=== PATIENT | male | born 1945 | race Caucasian/White ===

== ENCOUNTER 2017-12-16 00:24 | Inpatient (IN) | payer OTHER ==
[~2017-12-16] VITALS: Ht 175.3 cm; Wt 139.7 kg
[~2017-12-16 00:24] MED LIST: AMIO200T33 PO; ASPI81CH43 PO; ATO40T PO; GLIP-115 PO; HYDR-531 PO; INSUINJ2 SC; MET50T PO; MULT-228 PO; WARPRX PO
[2017-12-16 01:18] LABS: Basophils # (auto) 0 uL; Basophils % (auto) 0.5 % (0.0-2.0); Eosinophils # (auto) 0.1 uL; Eosinophils % (auto) 1.2 % (0.0-7.0); Hematocrit 49.1 % (41.0-53.0); Hemoglobin 16.6 g/dL (13.5-17.5); Lymphocytes % (auto) 21.4 % (10.0-50.0); Mean Corpuscular Hgb Conc. 33.9 g/dL (32.0-36.0); Mean Corpuscular Volume 91.5 fL (80.0-100.0); Monocytes # (auto) 1.1 uL; Monocytes % (auto) 11.4 % (0.0-12.0); Neutrophils # (auto) 6.1 uL; Neutrophils % (auto) 65.5 % (37.0-80.0); Platelet Count (auto) 269 10^3/uL (140-450); Red Blood Cells 5.37 10^6/uL (4.5-5.90); Red Cell Distribution Width 14.2 % (11.8-14.3); White Blood Cell 9.3 10^3/uL (4.4-10.8)
[2017-12-16 01:40] LABS: Chloride 104 mmol/L (98-107); Potassium 4.6 mmol/L (3.5-5.1); Sodium 136 mmol/L (136-145)
[2017-12-16 01:45] LABS: Alanine Aminotransferase 38 U/L (16-61); Albumin 3.5 g/dL (3.4-5.0); Anion Gap 10 (5-15); Aspartate Aminotransferase 29 U/L (15-37); BUN/Creatinine Ratio 15.8; Blood Urea Nitrogen 15 mg/dL (7-18); Calcium 8.9 mg/dL (8.5-10.1); Carbon Dioxide 22 mmol/L (21-32); GFR African American 101 mL/min; GFR Non-African American 83 mL/min; Glucose 208 mg/dL (74-106)
[2017-12-16 01:50] LABS: Alkaline Phosphatase 111 U/L (45-117); Bilirubin, Total 0.3 mg/dL (0.2-1.0); Total Protein 7.1 g/dL (6.4-8.2)
[2017-12-16] MEDS ORDERED: METOPROLOL TARTRATE 25 MG TAB PO ONE (03:00)
[2017-12-16] MEDS ORDERED: DIGOXIN (250MCG/ML) 2 ML AMPULE IV ONE (03:00)
[2017-12-16 04:00] LABS: INR 2.14 (0.9-1.15); Partial Thromboplastin Time 39.9 sec (22.64-33.71); Prothrombin Time 23.5 sec (9.37-12.3)
[2017-12-16] MEDS ORDERED: FUROSEMIDE 20 MG/2 ML VIAL IV ONE (06:45)
[2017-12-16] MEDS ORDERED: ENALAPRIL MALEATE 2.5 MG TAB PO ONE (06:45)
[2017-12-16] MEDS ORDERED: DEXTROSE (50%) 50ML SYRG IV PRN (06:45)
[2017-12-16] MEDS ORDERED: ACETAMINOPHEN 325 MG TAB PO PRN (06:45)
[2017-12-16] MEDS ORDERED: TEMAZEPAM 15 MG CAP PO PRN (06:45)
[2017-12-16] MEDS ORDERED: HYDROcodone-ACET 5/325MG TAB PO PRN (06:45)
[2017-12-16] MEDS ORDERED: MORPHINE SULFATE 4 MG/ML SYR/VIAL IV PRN (06:45)
[2017-12-16] MEDS ORDERED: NITROGLYCERIN 0.4 MG SL TAB SL PRN (06:45)
[2017-12-16] MEDS ORDERED: ONDANSETRON HCL 4 MG/2 ML VIAL IV PRN (06:45)
[2017-12-16] MEDS ORDERED: OPTISON 3ml Vial for INJ IV ONE (09:19)
[2017-12-16] MEDS ORDERED: AMIODARONE HCL 200 MG TAB PO SCH (10:00)
[2017-12-16] MEDS ORDERED: FAMOTIDINE 20 MG TAB PO SCH (10:00)
[2017-12-16] MEDS ORDERED: ASPirin 81 mg TAB PO SCH (10:00)
[2017-12-16] MEDS ORDERED: METOPROLOL TARTRATE 50 MG TAB PO SCH (10:00)
[2017-12-16 10:19] VITALS: BP 137/79
[2017-12-16] MEDS: InsuLIN REG 1unit/0.01ml Soln (100units/ml) SC SCH ×2 (10:55→16:56)
[2017-12-16] MEDS: ACCU-CHEK COMFORT CURVE STRIP VI SCH ×2 (10:55→16:57)
[2017-12-16] MEDS ORDERED: LEVO25TA6 PO (10:59)
[2017-12-16 11:58] VITALS: BP 145/79
[2017-12-16] MEDS ORDERED: AMI200T PO (12:33)
[2017-12-16] MEDS ORDERED: WARFARIN SODIUM 2 MG TAB PO ONE (17:00)
[2017-12-16 17:30] VITALS: BP 136/78
[2017-12-16] MEDS ORDERED: ATORVASTATIN 20 MG TAB PO SCH (22:00)
== END 2017-12-16 20:13 | disposition home or self-care (01) | DRG 309 ==
LOC: EDBD 00:24 → ER 00:32 → TELE 00:33 → TELE-WESTW 08:05
PROVIDERS: ADMIT Nurse Practitioner; ATTEND Internal Medicine
DX: I48.0 Paroxysmal atrial fibrillation (principal); D68.9 Coagulation defect, unspecified; E66.01 Morbid (severe) obesity due to excess calories; I11.0 Hypertensive heart disease with heart failure; Z68.42 Body mass index [BMI] 45.0-49.9, adult; I50.9 Heart failure, unspecified; E11.9 Type 2 diabetes mellitus without complications; F12.90 Cannabis use, unspecified, uncomplicated; F17.210 Nicotine dependence, cigarettes, uncomplicated; E78.5 Hyperlipidemia, unspecified; E03.9 Hypothyroidism, unspecified; Z88.8 Allergy status to other drugs, medicaments and biological substances; Z88.0 Allergy status to penicillin; Z79.899 Other long term (current) drug therapy; Z79.01 Long term (current) use of anticoagulants; Z79.82 Long term (current) use of aspirin; Z79.4 Long term (current) use of insulin
CPT/HCPCS: 36415; 71045; 80053; 82962; 83735; 84484; 85025; 85610; 85730; 93005; 93306; 96374; J1815; Q9956

== ENCOUNTER 2018-07-11 20:04 | Emergency (ER) | payer OTHER ==
[~2018-07-11] VITALS: Ht 175.3 cm; Wt 137.0 kg
[~2018-07-11 20:04] MED LIST changes: +AMI200T PO; -AMIO200T33 PO; -ASPI81CH43 PO; +LEVO25TA6 PO
[2018-07-11 21:25] LABS: Basophils # (auto) 0 uL; Basophils % (auto) 0.2 % (0.0-2.0); Eosinophils # (auto) 0 uL; Eosinophils % (auto) 0.1 % (0.0-7.0); Hemoglobin 14.7 g/dL (13.5-17.5); Lymphocytes # (auto) 0.5 uL; Lymphocytes % (auto) 4.5 % (10.0-50.0); Mean Corpuscular Hemoglobin 31.6 pg (28.0-32.0); Mean Corpuscular Hgb Conc. 34.2 g/dL (32.0-36.0); Mean Corpuscular Volume 92.5 fL (80.0-100.0); Monocytes # (auto) 0.8 uL; Monocytes % (auto) 6.7 % (0.0-12.0); Neutrophils # (auto) 10.1 uL; Neutrophils % (auto) 88.5 % (37.0-80.0); Platelet Count (auto) 219 10^3/uL (140-450); Red Blood Cells 4.65 10^6/uL (4.5-5.90); Red Cell Distribution Width 14.8 % (11.8-14.3); White Blood Cell 11.4 10^3/uL (4.4-10.8)
[2018-07-11 21:42] LABS: INR 2.74 (0.9-1.15); Partial Thromboplastin Time 39.9 sec (23.78-33.04); Prothrombin Time 27.7 sec (9.27-12.13)
[2018-07-11 21:51] LABS: Alanine Aminotransferase 56 U/L (16-61); Albumin 3.4 g/dL (3.4-5.0); Alkaline Phosphatase 95 U/L (45-117); Anion Gap 7 (5-15); Aspartate Aminotransferase 40 U/L (15-37); Bilirubin, Total 0.7 mg/dL (0.2-1.0); Blood Urea Nitrogen 15 mg/dL (7-18); Calcium 8.2 mg/dL (8.5-10.1); Carbon Dioxide 24 mmol/L (21-32); Chloride 105 mmol/L (98-107); GFR African American 80 mL/min; GFR Non-African American 66 mL/min; Glucose 248 mg/dL (74-106); Magnesium 2.3 mg/dL (1.6-2.6); Potassium 4.5 mmol/L (3.5-5.1); Sodium 136 mmol/L (136-145); Total Protein 6.9 g/dL (6.4-8.2)
[2018-07-11] MEDS ORDERED: MORPHINE SULF INJ 2 MG/ML SYRINGE 1ML IV ONE (23:15)
[2018-07-11] MEDS ORDERED: ONDANSETRON HCL 4 MG/2 ML VIAL IV ONE (23:15)
[2018-07-12] MEDS ORDERED: IOHEXOL 350 MG/ML 100ML IJ ONE (01:20)
[2018-07-12] MEDS ORDERED: HYDROmorphone HCL 2 MG/ML VL ONE (01:52)
[2018-07-12] MEDS ORDERED: HYDROmorphone HCL 2 MG/ML VL IV ONE (02:00)
[2018-07-12 02:36] VITALS: BP 130/58
== END 2018-07-12 02:31 | disposition short-term general hospital (02) ==
LOC: EDBD 20:04 → ER 20:15
DX: S22.059A Unspecified fracture of T5-T6 vertebra, initial encounter for closed fracture (principal); S22.069A Unspecified fracture of T7-T8 vertebra, initial encounter for closed fracture; S22.41XA Multiple fractures of ribs, right side, initial encounter for closed fracture; I48.91 Unspecified atrial fibrillation; E11.9 Type 2 diabetes mellitus without complications; E78.5 Hyperlipidemia, unspecified; I10 Essential (primary) hypertension; F17.210 Nicotine dependence, cigarettes, uncomplicated; Z88.0 Allergy status to penicillin; Z88.8 Allergy status to other drugs, medicaments and biological substances; Z79.4 Long term (current) use of insulin; Z79.899 Other long term (current) drug therapy; Z79.01 Long term (current) use of anticoagulants; W18.39XA Other fall on same level, initial encounter; Y93.89 Activity, other specified; Y99.8 Other external cause status; Y92.812 Truck as the place of occurrence of the external cause
CPT/HCPCS: 36415; 70450; 71275; 72128; 80053; 83735; 83880; 84484; 85025; 85610; 85730; 93005; 94761; 96374; 96375; 99285; J1170; J2270; J2405; Q9967

== ENCOUNTER 2018-10-15 14:54 | Inpatient (IN) | payer OTHER ==
[~2018-10-15] VITALS: Ht 175.3 cm; Wt 119.2 kg
[2018-10-15 16:01] LABS: Basophils # (auto) 0 uL; Basophils % (auto) 0.3 % (0.0-2.0); Eosinophils # (auto) 0.2 uL; Hematocrit 29.6 % (41.0-53.0); Hemoglobin 9.6 g/dL (13.5-17.5); Lymphocytes # (auto) 1.6 uL; Lymphocytes % (auto) 19.2 % (10.0-50.0); Mean Corpuscular Hemoglobin 27.6 pg (28.0-32.0); Mean Corpuscular Hgb Conc. 32.5 g/dL (32.0-36.0); Monocytes # (auto) 1.1 uL; Monocytes % (auto) 12.7 % (0.0-12.0); Neutrophils # (auto) 5.5 uL; Neutrophils % (auto) 65.8 % (37.0-80.0); Platelet Count (auto) 376 10^3/uL (140-450); Red Blood Cells 3.49 10^6/uL (4.5-5.90); Red Cell Distribution Width 16.5 % (11.8-14.3); White Blood Cell 8.4 10^3/uL (4.4-10.8)
[2018-10-15 16:19] LABS: Albumin 2.2 g/dL (3.4-5.0); BUN/Creatinine Ratio 10.1; Calcium 8.3 mg/dL (8.5-10.1)
[2018-10-15 16:24] LABS: Bilirubin, Total 0.3 mg/dL (0.2-1.0); Total Protein 6.1 g/dL (6.4-8.2)
[2018-10-15] MEDS ORDERED: SODIUM CHLORIDE 0.9% 1,000 ML IV ONE (17:28)
[2018-10-15] MEDS ORDERED: PROMETHAZINE HCL 25 MG/ML 1ML IV PRN (17:30)
[2018-10-15] MEDS ORDERED: KETOROLAC TROMETH 30 MG/ML 1ML VIAL IV ONE (17:30)
[2018-10-15] MEDS ORDERED: CLINDAMYCIN 900MG IV 50 ML IV ONE (17:45)
[2018-10-15] MEDS ORDERED: POTASSIUM EFFERVESENT TAB 25 MEQ PO ONE (17:45)
[2018-10-15 18:06] LABS: Magnesium 1.9 mg/dL (1.6-2.6)
[2018-10-15] MEDS ORDERED: TEMAZEPAM 15 MG CAP PO PRN (22:30)
[2018-10-15] MEDS ORDERED: ONDANSETRON HCL 4 MG/2 ML VIAL IV PRN (22:30)
[2018-10-15] MEDS ORDERED: DEXTROSE (50%) 50ML SYRG IV PRN (22:30)
[2018-10-15] MEDS ORDERED: HYDROcodone-ACET 5/325MG TAB PO PRN (22:30)
[2018-10-15] MEDS ORDERED: ACETAMINOPHEN 325 MG TAB PO PRN (22:30)
[2018-10-15] MEDS ORDERED: DOCUSATE SOD 100 MG CAP PO PRN (22:30)
[2018-10-15 22:57] LABS: INR 3.32 (0.9-1.15); Partial Thromboplastin Time 54.6 sec (23.78-33.04); Prothrombin Time 33.2 sec (9.27-12.13)
[2018-10-15 23:48] VITALS: BP 121/64
[2018-10-16 01:31] VITALS: BP 121/64
[2018-10-16] MEDS ORDERED: AMIO200T33 PO (02:54)
[2018-10-16] MEDS ORDERED: PANT40TA2 PO (02:54)
[2018-10-16] MEDS ORDERED: IRBE300T46 PO (02:54)
[2018-10-16] MEDS ORDERED: METO25TA5 PO (02:54)
[2018-10-16 04:00] VITALS: BP 115/59
[2018-10-16] MEDS: CLINDAMYCIN 600MG IV 50 ML IV SCH ×3 (05:49→22:10)
[2018-10-16] MEDS: InsuLIN REG 1unit/0.01ml Soln (100units/ml) SC SCH ×4 (06:00→18:00)
[2018-10-16] MEDS: ACCU-CHEK COMFORT CURVE STRIP VI SCH ×4 (06:18→18:20)
[2018-10-16 06:50] LABS: Albumin 1.9 g/dL (3.4-5.0); Basophils # (auto) 0 uL; Basophils % (auto) 0.7 % (0.0-2.0); Calcium 8.2 mg/dL (8.5-10.1); Eosinophils # (auto) 0.3 uL; Eosinophils % (auto) 4.7 % (0.0-7.0); Hemoglobin 9.6 g/dL (13.5-17.5); Lymphocytes # (auto) 1.5 uL; Lymphocytes % (auto) 24.8 % (10.0-50.0); Monocytes # (auto) 0.8 uL; Monocytes % (auto) 13.8 % (0.0-12.0); Neutrophils # (auto) 3.4 uL; Nucleated Red Blood Cells % 0.1 %; Platelet Count (auto) 360 10^3/uL (140-450); Potassium 3.1 mmol/L (3.5-5.1); Red Blood Cells 3.42 10^6/uL (4.5-5.90); Red Cell Distribution Width 16.4 % (11.8-14.3); White Blood Cell 6.1 10^3/uL (4.4-10.8)
[2018-10-16] MEDS: LEVOTHYROXINE SODIUM 25 MCG TAB PO SCH (06:51)
[2018-10-16 06:53] LABS: BUN/Creatinine Ratio 10.2; Bilirubin, Total 0.2 mg/dL (0.2-1.0); Total Protein 5.4 g/dL (6.4-8.2)
[2018-10-16 07:55] LABS: INR 3.34 (0.9-1.15); Partial Thromboplastin Time 51.3 sec (23.78-33.04); Prothrombin Time 33.4 sec (9.27-12.13)
[2018-10-16 08:19] VITALS: BP 122/65
[2018-10-16] MEDS: AMIODARONE HCL 200 MG TAB PO SCH ×2 (11:29→22:10)
[2018-10-16] MEDS: FAMOTIDINE 20 MG TAB PO SCH ×2 (11:29→22:11)
[2018-10-16] MEDS: METOPROLOL TARTRATE 50 MG TAB PO SCH ×2 (11:29→22:11)
[2018-10-16] MEDS ORDERED: FUROSEMIDE 20 MG/2 ML VIAL IV ONE (12:00)
[2018-10-16] MEDS ORDERED: POTASSIUM CHL 20 Meq TABLET PO ONE (12:00)
[2018-10-16 16:11] VITALS: BP 131/66
[2018-10-16 22:00] VITALS: BP 110/51
[2018-10-16] MEDS ORDERED: ATORVASTATIN 20 MG TAB PO SCH (22:00)
[2018-10-16 22:43] LABS: Urine Amorphous Crystal FEW /hpf (None Seen); Urine Bacteria FEW /hpf (None Seen); Urine Blood 2+ /uL (Negative); Urine Hyaline Cast FEW /lpf (0 - 2); Urine Mucus FEW (None Seen); Urine Specific Gravity 1.008 (1.001-1.035); Urine WBC 60 /hpf (0 - 3)
[2018-10-17 05:00] VITALS: BP 117/63
[2018-10-17] MEDS: ACCU-CHEK COMFORT CURVE STRIP VI SCH ×3 (05:39→13:08)
[2018-10-17] MEDS: CLINDAMYCIN 600MG IV 50 ML IV SCH (05:39)
[2018-10-17] MEDS: InsuLIN REG 1unit/0.01ml Soln (100units/ml) SC SCH ×3 (05:40→12:00)
[2018-10-17 06:01] LABS: INR 3.99 (0.9-1.15); Partial Thromboplastin Time 58.4 sec (23.78-33.04); Prothrombin Time 39.5 sec (9.27-12.13)
[2018-10-17 06:06] LABS: Albumin 1.9 g/dL (3.4-5.0); Calcium 8.1 mg/dL (8.5-10.1); Potassium 3.8 mmol/L (3.5-5.1)
[2018-10-17 06:08] LABS: BUN/Creatinine Ratio 9.2
[2018-10-17 06:09] LABS: Bilirubin, Total 0.3 mg/dL (0.2-1.0); Total Protein 5.5 g/dL (6.4-8.2)
[2018-10-17] MEDS: LEVOTHYROXINE SODIUM 25 MCG TAB PO SCH (06:31)
[2018-10-17 09:00] VITALS: BP 119/52
[2018-10-17] MEDS: METOPROLOL TARTRATE 50 MG TAB PO SCH (10:00)
[2018-10-17] MEDS: AMIODARONE HCL 200 MG TAB PO SCH (10:12)
[2018-10-17] MEDS: FAMOTIDINE 20 MG TAB PO SCH (10:12)
[2018-10-17 10:34] VITALS: BP 119/52
[2018-10-17] MEDS ORDERED: MEPERIDINE HCL (50 MG/ML) 1 ML VIAL ONE (10:56)
[2018-10-17] MEDS ORDERED: MIDAZOLAM HCL 1MG/1ML-2 ML VIAL ONE (10:56)
[2018-10-17] MEDS ORDERED: fentaNYL CITRATE 100 MCG/2 ML VL ONE (10:56)
[2018-10-17] MEDS ORDERED: PROPOFOL 10 MG/ML 20 ML IV ONE (11:01)
[2018-10-17] MEDS ORDERED: DEXAMETHASONE SOD PHOS 10MG/1ML VIAL INJ ONE (11:01)
[2018-10-17] MEDS ORDERED: diphenhdrAMINE HCL 50 MG/1 ML VL ONE (11:01)
== END 2018-10-17 13:45 | disposition home health service (06) | DRG 919 ==
LOC: EDBD 14:54 → ER 15:07 → WEST WING 22:34
PROVIDERS: ADMIT Nurse Practitioner; ATTEND Hospitalist
DX: T85.628A Displacement of other specified internal prosthetic devices, implants and grafts, initial encounter (principal); L89.94 Pressure ulcer of unspecified site, stage 4; L89.154 Pressure ulcer of sacral region, stage 4; E43 Unspecified severe protein-calorie malnutrition; T79.7XXA Traumatic subcutaneous emphysema, initial encounter; E66.01 Morbid (severe) obesity due to excess calories; I48.91 Unspecified atrial fibrillation; I70.8 Atherosclerosis of other arteries; E11.21 Type 2 diabetes mellitus with diabetic nephropathy; E78.5 Hyperlipidemia, unspecified; E87.5 Hyperkalemia; E87.6 Hypokalemia; F17.210 Nicotine dependence, cigarettes, uncomplicated; I10 Essential (primary) hypertension; K40.90 Unilateral inguinal hernia, without obstruction or gangrene, not specified as recurrent; K76.89 Other specified diseases of liver; N28.1 Cyst of kidney, acquired; W19.XXXA Unspecified fall, initial encounter; Y92.009 Unspecified place in unspecified non-institutional (private) residence as the place of occurrence of the external cause; Z79.899 Other long term (current) drug therapy; Y93.89 Activity, other specified; Y99.8 Other external cause status; Z68.38 Body mass index [BMI] 38.0-38.9, adult
CPT/HCPCS: 36415; 71045; 74176; 80053; 81001; 82962; 83690; 83735; 84443; 85025; 85610; 85730; 87077; 87081; 87186; 87205; 93005; 96361; 96365; 96375; A6257; G0378; J1100; J1885; J2250; J2704; J3490

== ENCOUNTER 2019-02-19 03:50 | Emergency (ER) | payer OTHER ==
[~2019-02-19] VITALS: Ht 175.3 cm; Wt 124.7 kg
[~2019-02-19 03:50] MED LIST changes: -AMI200T PO; +AMIO200T33 PO; +IRBE300T46 PO; -MET50T PO; +METO25TA5 PO; +PANT40TA2 PO
[2019-02-19 04:21] VITALS: BP 148/75
[2019-02-19] MEDS ORDERED: HYDROcodone-ACET 10/325MG TAB PO ONE (07:30)
== END 2019-02-19 08:26 | disposition home or self-care (01) ==
LOC: ER 03:50 → EDBD 03:50 → ER 08:26
DX: S39.012A Strain of muscle, fascia and tendon of lower back, initial encounter (principal); M48.061 Spinal stenosis, lumbar region without neurogenic claudication; M19.011 Primary osteoarthritis, right shoulder; E11.9 Type 2 diabetes mellitus without complications; E78.5 Hyperlipidemia, unspecified; I10 Essential (primary) hypertension; F17.210 Nicotine dependence, cigarettes, uncomplicated; F12.10 Cannabis abuse, uncomplicated; Z88.0 Allergy status to penicillin; Z79.899 Other long term (current) drug therapy; X50.9XXA Other and unspecified overexertion or strenuous movements or postures, initial encounter; Y93.89 Activity, other specified; Y92.89 Other specified places as the place of occurrence of the external cause; Y99.8 Other external cause status
CPT/HCPCS: 72131; 73030